=== PATIENT | male | born 1990 | race Caucasian/White ===

== ENCOUNTER 2017-06-05 07:38 | Emergency (ER) | payer SELFPAY ==
[~2017-06-05] VITALS: Ht 180.3 cm; Wt 72.6 kg
[~2017-06-05 07:38] MED LIST: ALBU90OI INH; ALBU90OI6; AMOX875 PO; ANAPROX DS PO; AZIT250 PO; Amoxicillin500 MG PO; BENADRYL; BENZ100A PO; CEPH500 PO; CIME300 PO; CODACE30 PO; CYCL10 PO; Ciprodex Otic7.5 ML BOTHEARS; DIPATR PO; HYDACE5 PO; HYDACE5325 PO; HYDCOR1TC TOP; HYDCOR1TO TOP; HYDR1TAB94 PO; IBUP600 PO; IBUP800 PO; MONT10T PO; NAPR220 PO; NAPR500 PO; Norco 5-325 Ta1 EACH PO; PERIDEX15 ML PO; PRED10 PO; PRED20 PO; PSEU120ER PO; SULTRIDS PO; TERB24TC TOP; TRIA80TC TOP; Veetids 500500 MG PO; Zofran Odt4 MG PO; Zofran Odt4 MG SL
== END 2017-06-05 09:40 | disposition home or self-care (01) ==
LOC: ER 07:38
DX: S61.211A Laceration without foreign body of left index finger without damage to nail, initial encounter (principal); S61.213A Laceration without foreign body of left middle finger without damage to nail, initial encounter; F17.210 Nicotine dependence, cigarettes, uncomplicated; J45.909 Unspecified asthma, uncomplicated; W26.8XXA Contact with other sharp object(s), not elsewhere classified, initial encounter; Y99.0 Civilian activity done for income or pay
CPT/HCPCS: 12002; 73120; 90471; 90714; 96372; 99283; J1885

== ENCOUNTER 2017-06-15 16:14 | Emergency (ER) | payer SELFPAY ==
[~2017-06-15] VITALS: Ht 182.9 cm; Wt 74.8 kg
== END 2017-06-15 16:42 | disposition home or self-care (01) ==
LOC: ER 16:14
DX: S61.211D Laceration without foreign body of left index finger without damage to nail, subsequent encounter (principal); J45.909 Unspecified asthma, uncomplicated; F17.210 Nicotine dependence, cigarettes, uncomplicated
CPT/HCPCS: 99281

== ENCOUNTER 2018-06-20 22:21 | Emergency (ER) | payer MEDICAID ==
[~2018-06-20] VITALS: Ht 182.9 cm; Wt 74.8 kg
[2018-06-20] MEDS ORDERED: CEPH500 PO (23:38)
== END 2018-06-20 23:47 | disposition home or self-care (01) ==
LOC: ER 22:21
DX: L03.111 Cellulitis of right axilla (principal); J45.909 Unspecified asthma, uncomplicated; F17.210 Nicotine dependence, cigarettes, uncomplicated
CPT/HCPCS: 99282

== ENCOUNTER 2018-12-22 21:37 | Emergency (ER) | payer OTHER ==
[~2018-12-22] VITALS: Ht 182.9 cm; Wt 72.6 kg
[2018-12-23] MEDS ORDERED: TRAM50 PO (00:04)
[2018-12-23] MEDS ORDERED: Cleocin HCl300 MG PO (00:04)
== END 2018-12-23 00:09 | disposition home or self-care (01) ==
LOC: ER 21:37
DX: K04.7 Periapical abscess without sinus (principal); K02.9 Dental caries, unspecified; F17.210 Nicotine dependence, cigarettes, uncomplicated
CPT/HCPCS: 64400; 99283-25

== ENCOUNTER 2019-02-26 22:51 | Emergency (ER) | payer SELFPAY ==
[~2019-02-26] VITALS: Ht 182.9 cm; Wt 72.6 kg
[~2019-02-26 22:51] MED LIST changes: +Cleocin HCl300 MG PO; +TRAM50 PO
[2019-02-26] MEDS ORDERED: Vibramycin100 MG PO (23:11)
== END 2019-02-26 23:25 | disposition home or self-care (01) ==
LOC: ER 22:51
DX: L01.02 Bockhart's impetigo (principal); J45.909 Unspecified asthma, uncomplicated; F17.210 Nicotine dependence, cigarettes, uncomplicated
CPT/HCPCS: 99282

== ENCOUNTER 2019-03-24 21:37 | Emergency (ER) | payer OTHER ==
[~2019-03-24] VITALS: Ht 182.9 cm; Wt 72.6 kg
[~2019-03-24 21:37] MED LIST changes: +Vibramycin100 MG PO
[2019-03-24] MEDS ORDERED: Keflex500 MG PO (23:50)
== END 2019-03-24 23:58 | disposition home or self-care (01) ==
LOC: ER 21:37
DX: S61.211A Laceration without foreign body of left index finger without damage to nail, initial encounter (principal); L03.114 Cellulitis of left upper limb; F17.210 Nicotine dependence, cigarettes, uncomplicated; X58.XXXA Exposure to other specified factors, initial encounter
CPT/HCPCS: 73110; 73130; 99283-25; A9270; A9270-GY

== ENCOUNTER 2020-04-12 05:28 | Emergency (ER) | payer SELFPAY ==
[~2020-04-12] VITALS: Ht 180.3 cm; Wt 77.1 kg
[~2020-04-12 05:28] MED LIST changes: -ACETAMINOPHEN500 MG PO; -LIDO700A20 TOP; -Prilosec Otc20 MG PO
[2020-04-12 06:19] LABS: Source, Urine Clean Catch
[2020-04-12 06:34] LABS: Appearance, Urine Clear (Clear); Bilirubin, Urine Neg (Neg); Blood, Urine Neg (Neg); Color, Urine Yellow (P-Yellow); Glucose Qualitative, Urine Neg (Neg); Ketones, Urine Neg (Neg); Leukocyte Esterase, Urine Neg (Neg); Nitrite, Urine Neg (Neg); Protein, Urine Neg (Neg); Urobilinogen, Urine NORM (Normal); pH, Urine 6.5 (5.0-8.0)
== END 2020-04-12 07:28 | disposition home or self-care (01) ==
LOC: ER 05:28
PROVIDERS: Emergency Medicine
DX: N50.3 Cyst of epididymis (principal); J45.909 Unspecified asthma, uncomplicated; F17.210 Nicotine dependence, cigarettes, uncomplicated
CPT/HCPCS: 76870; 81003; 99283-25

== ENCOUNTER → 2020-04-12 | Outpatient (CLI) | payer SELFPAY ==
[~2020-04-12] MED LIST changes: +ACETAMINOPHEN500 MG PO; +Keflex500 MG PO; +LIDO700A20 TOP; +Prilosec Otc20 MG PO
[2020-04-12 11:01] LABS: BASOPHILS ABSOLUTE AUTO 0.02 K/mm3 (0.00-0.23); BASOPHILS PERCENT AUTO 0 % (0-2); EOSINOPHILS ABSOLUTE AUTO 0.16 K/mm3 (0.00-0.68); EOSINOPHILS PERCENT AUTO 2 % (0-6); Hematocrit 43.8 % (37.0-53.0); Hemoglobin 15.1 g/dL (13.5-17.5); IMMATURE GRAN ABSOLUTE AUTO 0.01 K/mm3 (0.00-0.10); IMMATURE GRAN PERCENT AUTO 0 % (0-1); LYMPHOCYTES ABSOLUTE AUTO 2.51 K/mm3 (0.84-5.20); LYMPHOCYTES PERCENT AUTO 33 % (21-46); MONOCYTES ABSOLUTE AUTO 0.47 K/mm3 (0.16-1.47); MONOCYTES PERCENT AUTO 6 % (4-13); Mean Corpuscular HGB 30.9 pg (26.0-34.0); Mean Corpuscular HGB Conc 34.5 g/dL (31.5-36.5); Mean Corpuscular Volume 90 fL (80-100); Mean Platelet Volume 11.5 fL (9.1-12.4); NEUTROPHILS ABSOLUTE AUTO 4.39 K/mm3 (1.96-9.15); NEUTROPHILS PERCENT AUTO 58 % (41-73); Platelet Count 192 K/mm3 (150-400); RDW Coefficient Variation 12.5 % (11.7-14.2); RDW Standard Deviation 41.6 fL (35.1-46.3); Red Blood Cell Count 4.88 M/mm3 (4.30-5.90); White Blood Cell Count 7.56 K/mm3 (4.00-11.30)
[2020-04-12 11:11] LABS: Alanine Aminotransfer (ALT/SGP 31 U/L (12-78); Albumin, Blood 4.3 g/dL (3.4-5.0); Albumin/Globulin Ratio 1.3 (0.8-1.8); Alk Phos 90 U/L (40-126); Anion Gap 10 mmol/L (6-16); Aspartate Aminotrans (AST/SGOT 28 U/L (12-37); Bilirubin, Total 0.3 mg/dL (0.1-1.0); Blood Urea Nitrogen 18 mg/dL (8-24); Bun/Creatinine Ratio 16.7 (12.0-20.0); CO2, Blood 27 mmol/L (21-32); Chloride, Blood 104 mmol/L (98-108); Creatinine, Blood 1.08 mg/dL (0.60-1.20); Globulin, Blood 3.3 g/dL (2.2-4.0); Glomerular Filtration Rate >60 (60-); Glucose, Blood 108 mg/dL (70-99); Potassium, Blood 4.2 mmol/L (3.5-5.5); Sodium, Blood 141 mmol/L (136-145); Total Protein, Blood 7.6 g/dL (6.4-8.2)
== END | disposition home or self-care (01) ==
LOC: LAB SHORT 10:56 → LAB 10:56
PROVIDERS: Physician Assistant
DX: R53.83 Other fatigue (principal)
CPT/HCPCS: 80053; 84443; 85025

== ENCOUNTER 2020-05-06 00:11 | Emergency (ER) | payer SELFPAY ==
[~2020-05-06] VITALS: Ht 180.3 cm; Wt 74.8 kg
[2020-05-06] MEDS ORDERED: LIDO700A20 TOP (01:30)
[2020-05-06] MEDS ORDERED: ACETAMINOPHEN500 MG PO (01:30)
[2020-05-06] MEDS ORDERED: IBUP800 PO (01:30)
== END 2020-05-06 01:49 | disposition home or self-care (01) ==
LOC: ER 00:11
DX: M25.511 Pain in right shoulder (principal); F17.210 Nicotine dependence, cigarettes, uncomplicated
CPT/HCPCS: 99283; A9270

== ENCOUNTER 2020-05-29 22:11 | Emergency (ER) | payer SELFPAY ==
[~2020-05-29] VITALS: Ht 180.3 cm; Wt 74.8 kg
[~2020-05-29 22:11] MED LIST changes: +ACETAMINOPHEN500 MG PO; +LIDO700A20 TOP
[2020-05-29 22:41] LABS: BASOPHILS ABSOLUTE AUTO 0.02 K/mm3 (0.00-0.23); BASOPHILS PERCENT AUTO 0 % (0-2); EOSINOPHILS PERCENT AUTO 1 % (0-6); Hematocrit 46.3 % (37.0-53.0); Hemoglobin 15.8 g/dL (13.5-17.5); IMMATURE GRAN ABSOLUTE AUTO 0.01 K/mm3 (0.00-0.10); IMMATURE GRAN PERCENT AUTO 0 % (0-1); LYMPHOCYTES ABSOLUTE AUTO 2.92 K/mm3 (0.84-5.20); LYMPHOCYTES PERCENT AUTO 32 % (21-46); MONOCYTES ABSOLUTE AUTO 0.56 K/mm3 (0.16-1.47); MONOCYTES PERCENT AUTO 6 % (4-13); Mean Corpuscular HGB 30.6 pg (26.0-34.0); Mean Corpuscular HGB Conc 34.1 g/dL (31.5-36.5); Mean Corpuscular Volume 90 fL (80-100); Mean Platelet Volume 11.1 fL (9.1-12.4); NEUTROPHILS ABSOLUTE AUTO 5.57 K/mm3 (1.96-9.15); NEUTROPHILS PERCENT AUTO 61 % (41-73); Platelet Count 204 K/mm3 (150-400); RDW Coefficient Variation 12.4 % (11.7-14.2); RDW Standard Deviation 40.8 fL (35.1-46.3); Red Blood Cell Count 5.17 M/mm3 (4.30-5.90); White Blood Cell Count 9.18 K/mm3 (4.00-11.30)
[2020-05-29 22:59] LABS: Alanine Aminotransfer (ALT/SGP 33 U/L (12-78); Albumin, Blood 4.1 g/dL (3.4-5.0); Albumin/Globulin Ratio 1.2 (0.8-1.8); Alk Phos 82 U/L (50-136); Anion Gap 5 mmol/L (6-16); Aspartate Aminotrans (AST/SGOT 16 U/L (12-37); Bilirubin, Total 0.5 mg/dL (0.1-1.0); Blood Urea Nitrogen 13 mg/dL (8-24); Bun/Creatinine Ratio 10.7 (12.0-20.0); CO2, Blood 30 mmol/L (21-32); Calcium, Blood 9.2 mg/dL (8.5-10.1); Chloride, Blood 105 mmol/L (98-108); Creatinine, Blood 1.21 mg/dL (0.60-1.20); Globulin, Blood 3.4 g/dL (2.2-4.0); Glomerular Filtration Rate >60 (60-); Glucose, Blood 128 mg/dL (70-99); Potassium, Blood 3.3 mmol/L (3.5-5.5); Sodium, Blood 140 mmol/L (136-145); Total Protein, Blood 7.5 g/dL (6.4-8.2)
[2020-05-30 00:15] LABS: Source, Urine Clean Catch
[2020-05-30 00:16] LABS: Bilirubin, Urine Neg (Neg); Blood, Urine Neg (Neg); Glucose Qualitative, Urine Neg (Neg); Ketones, Urine 1+ (Neg); Leukocyte Esterase, Urine 1+ (Neg); Nitrite, Urine Neg (Neg); Protein, Urine 1+ (Neg); Specific Gravity, Urine 1.025 (1.003-1.022); Urobilinogen, Urine NORM (Normal)
[2020-05-30 00:17] LABS: Appearance, Urine Clear (Clear); Color, Urine Amber (P-Yellow)
[2020-05-30 00:23] LABS: Red Blood Cells, Urine 0-2 /hpf (0-2)
[2020-05-30 00:24] LABS: Bacteria Many /hpf; Mucus Heavy (0-Heavy); Squamous Epithelial Cells Few /hpf (Few)
[2020-05-30] MEDS ORDERED: Prilosec Otc20 MG PO (00:52)
== END 2020-05-30 01:03 | disposition home or self-care (01) ==
LOC: ER 22:11
PROVIDERS: Emergency Medicine
DX: K29.70 Gastritis, unspecified, without bleeding (principal)
CPT/HCPCS: 36415; 80053; 81001; 83690; 85025; 87086; 99283; A9270

== ENCOUNTER 2020-06-16 09:33 | Emergency (ER) | payer SELFPAY ==
[~2020-06-16] VITALS: Ht 180.3 cm; Wt 74.8 kg
[~2020-06-16 09:33] MED LIST changes: +Prilosec Otc20 MG PO
== END 2020-06-16 10:15 | disposition left against medical advice (07) ==
LOC: ER 09:33
DX: N50.3 Cyst of epididymis (principal); F17.210 Nicotine dependence, cigarettes, uncomplicated
CPT/HCPCS: 99282

== ENCOUNTER → 2020-06-21 | Outpatient (CLI) | payer SELFPAY | END | disposition home or self-care (01) | LOC: LAB 13:05 → LAB SHORT 13:05 | DX: N50.89 Other specified disorders of the male genital organs (principal); R53.83 Other fatigue | CPT/HCPCS: 82105; 84443; 84702 ==

== ENCOUNTER 2021-04-13 17:57 | Emergency (ER) | payer SELFPAY ==
[~2021-04-13] VITALS: Ht 182.9 cm; Wt 81.7 kg
[2021-04-13] MEDS ORDERED: CYCL10 PO (19:12)
[2021-04-13] MEDS ORDERED: METPRE4DP PO (19:12)
[2021-04-13] MEDS ORDERED: HYDR1TAB94 PO (19:12)
[2021-04-13] MEDS ORDERED: KETO10 PO (19:12)
== END 2021-04-13 19:30 | disposition home or self-care (01) ==
LOC: ER 17:57
DX: M54.50 Low back pain, unspecified (principal); F17.210 Nicotine dependence, cigarettes, uncomplicated
CPT/HCPCS: A9270